=== PATIENT | male | born 1955 | race Caucasian/White ===

== ENCOUNTER → 2023-05-27 09:08 | Outpatient (REF) | payer MEDICARE, BC, SELFPAY | LOC: HWRAD 09:08 | PROVIDERS: ATTENDING PHYSICIAN Internal Medicine Gastroenterology; FAMILY PHYSICIAN Family Medicine | DX: E83.119 Hemochromatosis, unspecified (principal) | CPT/HCPCS: 76700 ==

== ENCOUNTER → 2023-06-07 11:21 | Outpatient (REF) | payer MEDICARE, BC, SELFPAY | LOC: HWRAD 11:21 | PROVIDERS: ATTENDING PHYSICIAN Internal Medicine Gastroenterology; FAMILY PHYSICIAN Family Medicine | DX: Z91.89 Other specified personal risk factors, not elsewhere classified (principal) | CPT/HCPCS: 75571 ==

== ENCOUNTER → 2023-08-14 07:32 | Outpatient (REF) | payer MEDICARE, BC, SELFPAY | LOC: EMG 07:32 | PROVIDERS: ATTENDING PHYSICIAN Family Medicine | DX: R20.0 Anesthesia of skin (principal); G56.22 Lesion of ulnar nerve, left upper limb | CPT/HCPCS: 95886; 95909 ==

== ENCOUNTER → 2023-09-16 15:09 | Outpatient (REF) | payer MEDICARE, BC, SELFPAY | LOC: PAVMRI 15:09 | PROVIDERS: ATTENDING PHYSICIAN Family Medicine | DX: G56.92 Unspecified mononeuropathy of left upper limb (principal); M50.30 Other cervical disc degeneration, unspecified cervical region | CPT/HCPCS: 72141 ==

== ENCOUNTER → 2023-11-25 07:50 | Outpatient (REF) | payer MEDICARE, BC, SELFPAY | LOC: RAD 07:50 | PROVIDERS: ATTENDING PHYSICIAN Internal Medicine Gastroenterology; FAMILY PHYSICIAN Family Medicine | DX: K74.60 Unspecified cirrhosis of liver (principal) | CPT/HCPCS: 76700 ==

== ENCOUNTER → 2023-12-19 10:27 | Outpatient (REF) | payer MEDICARE, BC, SELFPAY ==
--- NOTE | 2023-12-19 11:40 | CARDSERVDEF ---
Echocardiogram with Definity completed after protocol screening completed. Allergies verified.
Patent IV site: ___Rt AC__
IV site flushed with 0.9% NaCl pre and post administration.
Diluted bolus method utilized to enhance visualization of ventricular martinez.
Total volume given: ____4.0 mL
Patient tolerated all procedures well without complications.
#20 stan placed left AC. Definity given for stress ECHO. INT d/c'd after procedure. pressure held. No bleeding noted.
== END ==
LOC: RCS 10:27
PROVIDERS: ATTENDING PHYSICIAN Internal Medicine Cardiovascular Disease; FAMILY PHYSICIAN Family Medicine
DX: R06.09 Other forms of dyspnea (principal); I25.10 Atherosclerotic heart disease of native coronary artery without angina pectoris
CPT/HCPCS: 93017; 93350; Q9957

== ENCOUNTER → 2024-03-20 10:15 | Outpatient (REF) | payer MEDICARE, BC, SELFPAY | LOC: HWRAD 10:15 | PROVIDERS: ATTENDING PHYSICIAN Orthopaedic Surgery Orthopaedic Surgery of the Spine; FAMILY PHYSICIAN Family Medicine | DX: M43.16 Spondylolisthesis, lumbar region (principal); M48.062 Spinal stenosis, lumbar region with neurogenic claudication | CPT/HCPCS: 72114; 72131 ==

== ENCOUNTER → 2024-05-13 07:15 | Outpatient (REF) | payer MEDICARE, BC, SELFPAY | LOC: HWRAD 07:15 | PROVIDERS: ATTENDING PHYSICIAN Internal Medicine Gastroenterology; FAMILY PHYSICIAN Family Medicine | DX: E83.119 Hemochromatosis, unspecified (principal) | CPT/HCPCS: 76700 ==

== ENCOUNTER → 2024-06-17 10:51 | Outpatient (REF) | payer MEDICARE, BC, SELFPAY | LOC: HWRAD 10:51 | PROVIDERS: ATTENDING PHYSICIAN Internal Medicine Rheumatology; FAMILY PHYSICIAN Family Medicine | DX: M54.9 Dorsalgia, unspecified (principal) | CPT/HCPCS: 72072 ==

== ENCOUNTER → 2024-09-01 13:07 | Outpatient (REF) | payer MEDICARE, BC, SELFPAY | LOC: RAD 13:07 | PROVIDERS: ATTENDING PHYSICIAN Internal Medicine Critical Care Medicine; FAMILY PHYSICIAN Family Medicine | DX: J98.6 Disorders of diaphragm (principal) | CPT/HCPCS: 71046; 76000 ==

== ENCOUNTER → 2024-10-08 14:01 | Outpatient (REF) | payer MEDICARE, BC, SELFPAY | LOC: HWRAD 14:01 | PROVIDERS: ATTENDING PHYSICIAN Nurse Practitioner Family | DX: M25.562 Pain in left knee (principal) | CPT/HCPCS: 73564 ==

== ENCOUNTER → 2024-10-26 17:15 | Outpatient (REF) | payer MEDICARE, BC, SELFPAY | LOC: RAD 17:15 | PROVIDERS: ATTENDING PHYSICIAN Internal Medicine Gastroenterology; FAMILY PHYSICIAN Family Medicine | DX: E83.119 Hemochromatosis, unspecified (principal) | CPT/HCPCS: 76700 ==

== ENCOUNTER → 2024-12-04 13:18 | Outpatient (REF) | payer MEDICARE, BC, SELFPAY | LOC: DHSLP 13:18 | PROVIDERS: ATTENDING PHYSICIAN Internal Medicine Critical Care Medicine; FAMILY PHYSICIAN Family Medicine | DX: G47.33 Obstructive sleep apnea (adult) (pediatric) (principal) | CPT/HCPCS: 95800 ==